=== PATIENT | male | born 2000 | race Two or more races ===

== ENCOUNTER 2021-04-14 21:06 | Emergency (ER) | payer SELFPAY ==
[2021-04-14] MEDS ORDERED: LIDOCAINE 2%/EPI 1:100,000 20 ML VIAL. INJ ONE (22:15)
[2021-04-14] MEDS ORDERED: CLIN150C16 PO ×2 (22:56→22:59)
--- NOTE | 2021-04-14 23:00 | ED.ADGEN ---
Past Medical History Past Medical History: No Pertinent History Past Surgical History: No Surgical History Smoking Status: Never Smoker Alcohol Use: None Drug Use: None General Adult EDM: Chief Complaint: ABSCESS HPI: HPI: Patient is a 21 year old male who presents to the emergency department with complaints of a swollen tender area to the left lower extremity since awakening today. Patient denies any drainage or bleeding from the site. He denies any itching. Patient is unsure of any known injury, he states he recently moved into a dorm room that was very dirty and may have been bit by a spider. Patient denies any fever, cough, sore throat, nausea, vomiting, diarrhea, abdominal pa in, shortness of breath, body aches, or fatigue. He currently rates pain a 5 out of 10 on pain scale, he denies any alleviating factors. The pain is worse with palpation. Review of Systems: Review of Systems: Complete ROS is negative unless otherwise noted in the HPI. Current Medications: Current Medications Medications (Trade) Dose Ordered Sig/Eyad Start Time Stop Time Status Last Admin Dose Admin Diphtheria/ Tetanus/Acell Pertussis (ADACEL TDap SYRINGE) 0.5 ml ONCE ONCE 04/14/21 23:30 04/14/21 23:31 DC 04/14/21 23:14 0.5 ML Lidocaine/ Epinephrine (LIDOCAINE 2%-EPI 1:100,000 multi-dose) 20 ml 1X ONCE 04/14/21 22:15 04/14/21 22:16 DC 04/14/21 22:13 20 ML Allergies: Allergies: Allergies Coded Allergies Type Severity Reaction Last Updated Verified No Known Drug Allergies 04/14/21 No Physical Exam: PE: See above Constitutional: Well developed, well nourished, no acute distress, non-toxic appearance. [] HENT: Normocephalic, atraumatic, bilateral external ears normal, nose normal. [] Eyes: PERRLA, EOMI, conjunctiva normal, no discharge. [] Neck: Normal range of motion, no stridor. [] Cardiovascular:Heart rate regular rhythm Lungs & Thorax: Respirations even and unlabored, no retractions, no respiratory distress Skin: Warm, dry; erythemic, edematous, tender area to anterior lower left leg central punctum and fluctuance consistent with cutaneous abscess. Extremities: No cyanosis, ROM intact, no edema. [] Neurologic: Alert and oriented X 3, no focal deficits noted. [] Psychologic: Affect normal, judgement normal, mood normal. [] Current Patient Data: Vital Signs: Vital Signs Date Time Temp Pulse Resp B/P (MAP) Pulse Ox O2 Delivery O2 Flow Rate FiO2 04/14/21 23:14 48 18 140/58 (85) 100 Room Air 04/14/21 21:15 98.7 98.7 EKG: EKG: [] Heart Score: C/O Chest Pain: No Radiology/Procedures: Radiology/Procedures: Indication: abscess Procedure: The patient was positioned appropriately. Local anesthesia was 2% lidocaine with epinephrine an incision was then made over the apex of the lesion and moderate amount of bloody pus material was expressed. The drainage cavity was packed with sterile gauze. The patients tetanus status was updated as needed. The patient tolerated the procedure well. Complications: none, minimal blood loss.[] Course & Med Decision Making: Course & Med Decision Making Pertinent Labs and Imaging studies reviewed. (See chart for details) [] Patients Care and treatment plan provided by ER Nurse Practitioner. I was available for consult. Patient's chart reviewed. Freedom Disclaimer: Freedom Disclaimer: This electronic medical record was generated, in whole or in part, using a voice recognition dictation system. Departure Departure Impression: Primary Impression: Abscess of left lower extremity excluding foot Disposition: 01 HOME / SELF CARE / HOMELESS Condition: STABLE Referrals: UNKNOWN PCP NAME (PCP) Patient Instructions: Abscess, [id number] Additional Instructions: Fill the prescription(s) and use as directed. You may take tylenol or ibuprofen as needed for pain. Leave the Dressing that was placed in the ER in place for the next 24 hours, then change the dressing twice daily and apply antibiotic ointment as needed. You may apply warm, moist packs to the area to help decrease discomfort. Follow up with your primary care doctor or return to the ER in 48 hours to have wound rechecked. Return to the ER sooner if your symptoms worsen or fever develops. Scripts Clindamycin Hcl (CLINDAMYCIN HCL) 150 Mg Capsule 450 MG PO TID for 7 Days, #63 CAP 0 Refills Prov: RINA DOMÍNGUEZ APRN 04/14/21 RINA DOMÍNGUEZ APRN Apr 14, 2021 23:00 CONSTANTINE VALDEZ DO Apr 18, 2021 18:13
[2021-04-14 23:14] VITALS: BP 140/58
[2021-04-14] MEDS ORDERED: DIPH,PERTUSS(ACELL),TET VAC/PF 0.5 ML SYRINGE. VAX IM ONE (23:30)
== END 2021-04-14 23:30 | disposition home or self-care (01) ==
LOC: ER 21:06
DX: L02.416 Cutaneous abscess of left lower limb (principal)
CPT/HCPCS: 10060; 90471; 90715; 99285; J3490

== ENCOUNTER → 2021-10-22 | Outpatient (CLI) | payer OTHER ==
[~2021-10-22] MED LIST: CLIN150C16 PO
--- NOTE | 2021-10-22 14:41 | KCIC ---
XR FOOT_RIGHT 3 VIEWS 10/22/2021 Reason: Rt foot pain, sesamoid bone pain. / Spl. Instructions: Hurts to walk, someone stepped on pt f oot 1 wk. ago. / History: Comparison: None Technique: 4 views of the right foot Findings: Lucency transversely through the medial sesamoid likely represents bipartite hallux sesamoid given sc lerosis along the edges. There is mild swelling in the area of the first metatarsophalangeal joint. N o significant degenerative change. No evidence of long bone fracture. No dislocation Impression: Bipartite hallux sesamoid versus transverse fracture of the medial sesamoid. Electronically signed by: Jersey Bear (10/22/2021 2:39 PM) [id number]
== END ==
LOC: KCIC 11:14
PROVIDERS: ATTEND Family Medicine
DX: M25.471 Effusion, right ankle (principal); M79.671 Pain in right foot
CPT/HCPCS: 73630